=== PATIENT | female | born 1965 | race Caucasian/White ===

== ENCOUNTER 2024-01-30 12:11 | Emergency (ER) | payer SELFPAY ==
[2024-01-30] MEDS ORDERED: Albuterol 2.5 MG (3 mL) NEB ONE (13:29)
[2024-01-30] MEDS ORDERED: Ipratropium Bromide 2.5 ml Neb ONE ×2 (13:29→13:31)
== END 2024-01-30 14:50 | disposition home or self-care (01) ==
LOC: BURERS 12:11
DX: J20.9 Acute bronchitis, unspecified (principal); E11.9 Type 2 diabetes mellitus without complications; I10 Essential (primary) hypertension; Z87.891 Personal history of nicotine dependence
CPT/HCPCS: 71046; 87428; J7611; J7644